=== PATIENT | female | born 1960 | race Caucasian/White ===

== ENCOUNTER → 2020-07-06 | Outpatient (CLI) | payer OTHER | LOC: KOH-I 09:53 | DX: M47.22 Other spondylosis with radiculopathy, cervical region (principal) | CPT/HCPCS: 72050 ==

== ENCOUNTER → 2021-08-25 | Outpatient (CLI) | payer OTHER | LOC: KOH-I 12:18 | DX: M25.532 Pain in left wrist (principal); M79.642 Pain in left hand; M19.042 Primary osteoarthritis, left hand | CPT/HCPCS: 73110; 73140 ==